=== PATIENT | male | born 1930 | race Caucasian/White ===

== ENCOUNTER 2018-08-12 08:50 | Day surgery (SDC) | payer MEDICARE ==
[~2018-08-12 08:50] MED LIST: MIDAZOLAM INJ 2 MG/2 ML VIAL (J2250) As Ordered; PHENYLEPHRINE HCL 10 % OPHTH. SOL 5ML OS; fentaNYL 100 MCG/2 ML INJECTION (J3010) As Ordered
[2018-08-12] MEDS: LIDOCAINE 3.5 % 1ML OPHTH TOPICAL GEL OU (10:30)
[2018-08-12] MEDS: OFLOXACIN 0.3 % (OCUFLOX) OPTH SOL 5ML OS (10:30)
[2018-08-12] MEDS: TROPICAMIDE 1% OPHTH SOLN 2ML OS (10:30)
[2018-08-12] MEDS: PHENYLEPHRINE 2.5% OPHTH SOL 2ML OS (10:30)
[2018-08-12] MEDS: CYCLOPENTOLATE 2% OPHTH SOLN 2ML BTL OS (10:31)
[2018-08-12] MEDS: POVIDONE-IODINE 5% OPHTH PREP SOL 30ML As Ordered (11:23)
[2018-08-12] MEDS: BALANCED SALT IRRIGATION SOLUTION 500ML BAG (FOR OR EYE MACHINE) As Ordered (11:25)
[2018-08-12] MEDS: CEFUROXIME 1MG/0.1ML INTRACAMERAL INJ As Ordered (11:25)
[2018-08-12] MEDS: LIDOCAINE 1% SDV 5 ML VIAL As Ordered (11:25)
[2018-08-12] MEDS: HEALON DUET PRO(HEALON 10MG/ML 0.55ML & HEALON ENDOCOAT 30MG/ML 0.85ML) As Ordered (11:25)
== END 2018-08-12 12:24 | disposition home or self-care (01) ==
LOC: M SDC 08:50
DX: H25.12 Age-related nuclear cataract, left eye (principal); I48.1 Persistent atrial fibrillation; R07.9 Chest pain, unspecified; G56.01 Carpal tunnel syndrome, right upper limb; N18.3 Chronic kidney disease, stage 3 (moderate); K21.9 Gastro-esophageal reflux disease without esophagitis; I12.9 Hypertensive chronic kidney disease with stage 1 through stage 4 chronic kidney disease, or unspecified chronic kidney disease; E78.00 Pure hypercholesterolemia, unspecified; E78.5 Hyperlipidemia, unspecified; J67.0 Farmer's lung; M54.5 Low back pain; F52.21 Male erectile disorder; M12.9 Arthropathy, unspecified; R73.03 Prediabetes; J45.909 Unspecified asthma, uncomplicated; Z88.5 Allergy status to narcotic agent; Z79.899 Other long term (current) drug therapy; Z87.442 Personal history of urinary calculi; Z85.528 Personal history of other malignant neoplasm of kidney; Z90.5 Acquired absence of kidney
CPT/HCPCS: 66984

== ENCOUNTER 2018-08-19 09:54 | Day surgery (SDC) | payer MEDICARE ==
[~2018-08-19 09:54] MED LIST changes: +ACETAMINOPHEN 325 MG TAB PO; -PHENYLEPHRINE HCL 10 % OPHTH. SOL 5ML OS; +PROPARACAINE 0.5% OPHTH SOL 15ML OD
[2018-08-19] MEDS: CYCLOPENTOLATE 2% OPHTH SOLN 2ML BTL OD (10:38)
[2018-08-19] MEDS: LIDOCAINE 3.5 % 1ML OPHTH TOPICAL GEL OU (10:39)
[2018-08-19] MEDS: OFLOXACIN 0.3 % (OCUFLOX) OPTH SOL 5ML OD (10:39)
[2018-08-19] MEDS: PHENYLEPHRINE 2.5% OPHTH SOL 2ML OD (10:39)
[2018-08-19] MEDS: TROPICAMIDE 1% OPHTH SOLN 2ML OD (10:39)
[2018-08-19] MEDS: PHENYLEPHRINE HCL 10 % OPHTH. SOL 5ML OD (10:43)
[2018-08-19] MEDS: POVIDONE-IODINE 5% OPHTH PREP SOL 30ML As Ordered (11:17)
[2018-08-19] MEDS: HEALON DUET PRO(HEALON 10MG/ML 0.55ML & HEALON ENDOCOAT 30MG/ML 0.85ML) As Ordered ×2 (11:17→11:18)
[2018-08-19] MEDS: BALANCED SALT IRRIGATION SOLUTION 500ML BAG (FOR OR EYE MACHINE) As Ordered (11:17)
[2018-08-19] MEDS: LIDOCAINE 1% SDV 5 ML VIAL As Ordered (11:17)
[2018-08-19] MEDS: CEFUROXIME 1MG/0.1ML INTRACAMERAL INJ As Ordered (11:18)
[2018-08-19] MEDS: AcetaZOLAMIDE 500 MG ER CAP PO (11:58)
[2018-08-19] MEDS: KETOROLAC 0.5% OPHTH SOLN OD (11:58)
[2018-08-19] MEDS ORDERED: TRIMETHOBENZAMIDE 300 MG CAP PO (12:00)
== END 2018-08-19 12:12 | disposition home or self-care (01) ==
LOC: M SDC 09:54
DX: H25.11 Age-related nuclear cataract, right eye (principal); I12.9 Hypertensive chronic kidney disease with stage 1 through stage 4 chronic kidney disease, or unspecified chronic kidney disease; I48.1 Persistent atrial fibrillation; N18.3 Chronic kidney disease, stage 3 (moderate); R73.03 Prediabetes; E78.5 Hyperlipidemia, unspecified; E78.1 Pure hyperglyceridemia; J67.0 Farmer's lung; K21.9 Gastro-esophageal reflux disease without esophagitis; M54.5 Low back pain; N52.9 Male erectile dysfunction, unspecified; S99.922D Unspecified injury of left foot, subsequent encounter; M12.9 Arthropathy, unspecified; Z88.5 Allergy status to narcotic agent; Z79.899 Other long term (current) drug therapy; Z79.01 Long term (current) use of anticoagulants; Z87.442 Personal history of urinary calculi; Z85.528 Personal history of other malignant neoplasm of kidney
CPT/HCPCS: 66984